=== PATIENT | female | born 1955 | race Caucasian/White ===

== ENCOUNTER → 2019-01-15 | Outpatient (REF) | LOC: ZLAB.WCH 20:12 | DX: Z01.89 Encounter for other specified special examinations (principal) ==

== ENCOUNTER 2019-10-01 10:42 | Day surgery (SDC) | payer OTHER, MEDICAID ==
[~2019-10-01] VITALS: Ht 167.6 cm; Wt 125.5 kg
[2019-10-01 11:43] VITALS: BP 151/103; PULSE 79; TEMP 97.4
[2019-10-01] MEDS ORDERED: ULTRAM 50MG TAB50 MG PO (12:01)
[2019-10-01] MEDS ORDERED: PRIL40 PO (12:02)
[2019-10-01] MEDS ORDERED: LOTENSIN40 MG PO (12:03)
[2019-10-01] MEDS ORDERED: LINZESS290CAP PO (12:04)
[2019-10-01] MEDS ORDERED: NORVASC 10MG10 MG PO (12:04)
[2019-10-01] MEDS ORDERED: SYNTHROID0.137 MG PO (12:06)
[2019-10-01] MEDS ORDERED: LIORESAL20 MG PO (12:07)
[2019-10-01] MEDS ORDERED: LIPITOR20 MG PO (12:07)
[2019-10-01] MEDS ORDERED: PROTONIX 40MG T40 MG PO (12:08)
[2019-10-01] MEDS ORDERED: ESTRACE 1MG1 MG/TAB PO (12:09)
[2019-10-01] MEDS ORDERED: PRISTIQ100 MG PO (12:09)
[2019-10-01] MEDS ORDERED: OMEGA-31 SGL PO (12:10)
[2019-10-01] MEDS ORDERED: THE MEDICINE S200 M2 PO (12:11)
[2019-10-01] MEDS ORDERED: COREG 25MG25 MG/TAB PO (12:11)
[2019-10-01] MEDS ORDERED: BENADRYL50 MG PO (12:12)
[2019-10-01] MEDS ORDERED: MELATONIN5 M1 PO (12:13)
[2019-10-01] MEDS ORDERED: MULTIPLE VITAMI1 TA5 PO (12:14)
[2019-10-01] MEDS ORDERED: ASPIRIN 81M81 MG/TA2 PO (12:14)
[2019-10-01] MEDS ORDERED: LYRICA 100MG C100 M1 PO (12:15)
[2019-10-01] MEDS ORDERED: LASIX 40MG TABL40 MG PO (12:15)
[2019-10-01] MEDS ORDERED: GARLIC100 MG PO (12:16)
--- NOTE | 2019-10-01 12:16 | NUR ---
IV started by Randi MOYA from [facility] after 4 unsuccessful attempts.
[2019-10-01 14:33] VITALS: BP 152/84; PULSE 84
--- NOTE | 2019-10-01 14:33 | NUR ---
Patient returns to room 7 per cart from surgery. Marx set dressing dry on the left upper buttocks. IV fluids infusing and site is free of redness. Siderail up x2 and call light in reach. Temp 97.6. Room air sats 96%. Denies pain or nausea.
[2019-10-01 14:48] VITALS: BP 140/80; PULSE 82
--- NOTE | 2019-10-01 14:48 | NUR ---
Resting and family in room. Room air sats 95%.
[2019-10-01 15:03] VITALS: BP 149/73; PULSE 80
--- NOTE | 2019-10-01 15:03 | NUR ---
Eating muffin and denies pain or nausea.
--- NOTE | 2019-10-01 15:30 | NUR ---
IV discontinued and assisted patient with dressing. Requested light dressing over incision. Folded 4x4 and tegaderm placed over incision. States that the chase set glue is rubbing on clothing.
--- NOTE | 2019-10-01 15:48 | NUR ---
Given dismissal instructions and voices understanding of these.
--- NOTE | 2019-10-01 15:55 | NUR ---
Patient dismissed to home driven by daughter and taken to the front door per wheelchair and assisted into car by RN with dismissal instructions in hand.
== END 2019-10-01 15:55 | disposition home or self-care (01) ==
LOC: SDCO 10:42
DX: N39.46 Mixed incontinence (principal); R35.1 Nocturia; R35.0 Frequency of micturition; I10 Essential (primary) hypertension; G35 Multiple sclerosis; Z79.899 Other long term (current) drug therapy; Z79.82 Long term (current) use of aspirin; Z88.8 Allergy status to other drugs, medicaments and biological substances; Z88.1 Allergy status to other antibiotic agents; Z91.040 Latex allergy status; Z80.0 Family history of malignant neoplasm of digestive organs; Z80.42 Family history of malignant neoplasm of prostate; Z80.8 Family history of malignant neoplasm of other organs or systems; K21.9 Gastro-esophageal reflux disease without esophagitis; Z86.73 Personal history of transient ischemic attack (TIA), and cerebral infarction without residual deficits
CPT/HCPCS: C1767; C1778; C1787; C1894; J0690; J2250; J2405; J2704; J3010; J7120

== ENCOUNTER 2020-01-08 20:56 | Inpatient (IN) | payer MEDICARE, MEDICAID ==
[~2020-01-08] VITALS: Ht 167.6 cm; Wt 120.6 kg
[~2020-01-08 20:56] MED LIST: AMBIEN 10MG10 MG PO; ASPIRIN 81M81 MG/TA2 PO; ASPIRIN E.C. 8181 MG PO; BENADRYL25 M2 PO; CALCIUM 600MG+D1 TAB PO; COENZYME Q10 PO; COREG 25MG25 MG/TAB PO; ESTRACE 1MG1 MG/TAB PO; GLUCOPHAGE500 MG/TAB PO; Garlic PO; HAIRSKINNAILS PO; IPRATROPIUM BROM3 M1 IH; LASIX 40MG TABL40 MG PO; LINZESS290CAP PO; LIORESAL20 MG PO; LIPITOR20 MG PO; LOTENSIN40 MG PO; LYRICA 100MG C100 M1 PO; MELATONIN5 M1 PO; MUCINEX1200 MG PO; MULTIPLE VITAMI1 TA5 PO; NORCO 325 MG-7.1 TAB PO; NORVASC 10MG10 MG PO; OMEGA-3 1000 MG1 CAP PO; PRIL40 PO; PRISTIQ100 MG PO; PROTONIX 40MG T40 MG PO; SYNTHROID0.1 MG/TAB PO; TYLENOL 325MG325 MG PO; TYLENOL 500MG500 MG PO; ULTRAM 50MG TAB50 MG PO; VTAMINC250TA PO
[2020-01-08 21:41] LABS: ARTERIAL BLD GAS O2 SATURATION 96.8 % (92-100); ARTERIAL BLD GAS TCO2 CT 22.4; ARTERIAL BLOOD GAS HCO3 21.4 meq/L (22-26); ARTERIAL BLOOD GAS PCO2 32.1 mmHg (35-45); ARTERIAL BLOOD GAS PO2 93.2 mmHg (80-100); ARTERIAL BLOOD GAS pH 7.44 (7.35-7.45)
[2020-01-08 22:10] LABS: BASO # 0.1 (0.0-0.2); BASO % 0.3 % (0.0-2.0); EOS # 0.1 (0.0-0.7); EOS % 0.5 % (0-4.0); GRAN # 11.7 (1.4-6.5); GRAN % 77.4 % (42.2-75.2); HEMATOCRIT 38.4 % (37.0-47.0); HEMOGLOBIN 12.9 g/dl (12.5-16.0); LYMPH # 2.3 (1.2-3.4); LYMPH % 15.1 % (20.0-51.0); MEAN CELL VOLUME 100 fl (80.0-100.0); MEAN CORPUSCULAR HEMOGLOBIN 34 pg (27.0-31.0); MEAN CORPUSCULAR HGB CONC 34 g/dl (33.0-37.0); MONO # 0.9 (0.1-0.6); MONO % 5.6 % (1.7-9.3); PLATELET COUNT 286 K/mm3 (130-400); RED BLOOD COUNT 3.85 M/mm3 (4.10-5.30); REDCELL DISTRIBUTION WIDTH-CV 15.1 % (11.5-14.5)
[2020-01-08 22:27] LABS: ALBUMIN 4.2 gm/dL (3.5-5.0); C-REACTIVE PROTEIN 3.2 mg/dL (0.0-0.9); CALCIUM 9.2 mg/dL (8.4-10.2); CREATININE, serum 1.08 (0.52-1.25); POTASSIUM 3.5 mmol/L (3.4-5.0); TOTAL PROTEIN 7.4 gm/dL (6.4-8.2)
[2020-01-08 22:32] LABS: TROPONIN-I 0.024 ng/mL (0.000-0.035)
[2020-01-08 23:49] LABS: COLLECTION METHOD CLEAN CATCH
--- NOTE | 2020-01-09 00:05 | NUR ---
Received report from GRIFFIN Moreno.
[2020-01-09] MEDS ORDERED: LINZESS290CAP PO (00:10)
[2020-01-09] MEDS ORDERED: PRISTIQ100 MG PO (00:12)
[2020-01-09] MEDS ORDERED: XANAX 0.5MG0.5 MG PO (00:15)
[2020-01-09] MEDS ORDERED: MAALOX ADVANCED1 CTB PO ×2 (00:15→03:17)
[2020-01-09] MEDS ORDERED: NAPROSYN500 MG PO (00:16)
--- NOTE | 2020-01-09 00:25 | NUR ---
Patient arrives to [facility] room 15 via ED stretcher accompanied by ED nurse and daughter Zain. Patient opens eyes spontaneously upon transfer to IMCU bed. Patient alert to self, city, current president, and upcoming holiday, however, is not oriented to day or present situation and unable to rate pain on a scale of 1-10. She quickly becomes drowsy/lethargic once settled in the bed. ED nurse Josh states this is the most alert and oriented patient has presented all night. Patient has small scratches/scabs scattered throughout BUE and her lower back is bruised. Pitting edema noted in BLE, 1+ noted in BUE. Feet are dry and scaling although skin is intact. Groin area is reddened. No other skin issues noted. Will continue to monitor.
[2020-01-09 00:59] LABS: TRICYCLIC ANTIDEPRESS URINE NEGATIVE
[2020-01-09 01:02] LABS: MUCOUS Present /lpf; PH 5 (5-8); SQUAMOUS EPITHELIAL 0-2 /hpf; URINE APPEARANCE Hazy; URINE BACTERIA None Seen /hpf; URINE BILIRUBIN Negative (NEGATIVE); URINE BLOOD Negative (NEGATIVE); URINE COLOR Yellow; URINE GLUCOSE Negative (NEGATIVE); URINE KETONE Negative (NEGATIVE); URINE LEUKOCYTE ESTERASE Negative (NEGATIVE); URINE NITRATE Negative (NEGATIVE); URINE PROTEIN(semi-quant) Negative (NEGATIVE); URINE RBC 0-2 /hpf; URINE UROBILINOGEN Negative (NEGATIVE)
[2020-01-09 02:16] VITALS: BP 126/76; PULSE 94; TEMP 98
[2020-01-09] MEDS ORDERED: MULTI VITAMINS1 TAB PO (03:28)
[2020-01-09 04:00] VITALS: BP 110/70; PULSE 84; TEMP 98.3
[2020-01-09 05:23] LABS: BASO % 0.4 % (0.0-2.0); EOS # 0.1 (0.0-0.7); EOS % 0.5 % (0-4.0); GRAN # 7.9 (1.4-6.5); GRAN % 74.1 % (42.2-75.2); HEMOGLOBIN 11.7 g/dl (12.5-16.0); LYMPH % 18.4 % (20.0-51.0); MEAN CELL VOLUME 102 fl (80.0-100.0); MEAN CORPUSCULAR HEMOGLOBIN 34 pg (27.0-31.0); MEAN CORPUSCULAR HGB CONC 33 g/dl (33.0-37.0); MEAN PLATELET VOLUME 9.9 fl (7.4-10.4); MONO # 0.6 (0.1-0.6); MONO % 5.5 % (1.7-9.3); PLATELET COUNT 192 K/mm3 (130-400); RED BLOOD COUNT 3.45 M/mm3 (4.10-5.30); REDCELL DISTRIBUTION WIDTH-CV 15.3 % (11.5-14.5)
[2020-01-09 05:24] LABS: HEMATOCRIT 35.2 % (37.0-47.0)
[2020-01-09 05:29] LABS: CALCIUM 8.7 mg/dL (8.4-10.2); CREATININE, serum 0.86 (0.52-1.25); POTASSIUM 3.2 mmol/L (3.4-5.0)
--- NOTE | 2020-01-09 07:15 | NUR ---
Report given to GRIFFIN Stone.
[2020-01-09 08:00] VITALS: BP 143/85; PULSE 99; TEMP 98.1
--- NOTE | 2020-01-09 11:59 | NUR ---
DR OWENS MAKING ROUNDS AT THIS TIME.
[2020-01-09 12:00] VITALS: BP 119/80; PULSE 101; TEMP 98.1
[2020-01-09 16:00] VITALS: BP 127/73; PULSE 99; TEMP 98
--- NOTE | 2020-01-09 16:01 | NUR ---
POTATO PEELER student met with the patient to complete initial intake. The patient was at [facility] for fpc. The patient receives assistance with ADLs and uses a wheelchair when needed. The patient has a CPAP. The patient's PCP is Dr. Shi and reports that [facility] handles all her medication needs. The patient does not have advanced directives in the EMR. The patient reports she will discuss discharging back to [facility] with her daughter. PT/OT ordered for the patient. director of food and beverage services will continue to follow.
--- NOTE | 2020-01-09 19:00 | NUR ---
Received report from GRIFFIN Stone.
[2020-01-09 20:00] VITALS: BP 112/64; PULSE 108; TEMP 98
--- NOTE | 2020-01-09 22:00 | NUR ---
Patient's 2100 HepXa resulted as 1.95. Heparin drip placed on hold at this time according to protocol. Next HepXa scheduled for 0000.
[2020-01-10] VITALS (7 sets, daily range): BP systolic 122–146; BP diastolic 80–98; PULSE 96–111; TEMP 97.8–98.6
--- NOTE | 2020-01-10 00:20 | NUR ---
Patient began expressing increased anxiety related to diagnosis around 2330. Patient's concerns and fears primarily related to family history of clotting disorders and heart problems. Cares performed to make patient more calm and comfortable. Patient continued to express anxiety, stating she felt as though she were having a panic attack. HR and BP elevated from baseline. Dr. Price notified. Received orders for Xanax 0.5 mg PO every 8 hours PRN. Medication administered. Will continue to monitor.
--- NOTE | 2020-01-10 07:20 | NUR ---
Report given to GRIFFIN Shea.
[2020-01-10 08:00] LABS: BASO % 0.3 % (0.0-2.0); EOS # 0.1 (0.0-0.7); EOS % 0.9 % (0-4.0); GRAN # 7.1 (1.4-6.5); GRAN % 70.3 % (42.2-75.2); HEMOGLOBIN 10.8 g/dl (12.5-16.0); LYMPH # 2.1 (1.2-3.4); LYMPH % 20.7 % (20.0-51.0); MEAN CELL VOLUME 103 fl (80.0-100.0); MEAN CORPUSCULAR HEMOGLOBIN 34 pg (27.0-31.0); MEAN CORPUSCULAR HGB CONC 33 g/dl (33.0-37.0); MEAN PLATELET VOLUME 9.6 fl (7.4-10.4); MONO # 0.7 (0.1-0.6); MONO % 6.7 % (1.7-9.3); PLATELET COUNT 200 K/mm3 (130-400); REDCELL DISTRIBUTION WIDTH-CV 15.4 % (11.5-14.5)
[2020-01-10 08:01] LABS: HEMATOCRIT 32.9 % (37.0-47.0)
[2020-01-10 08:12] LABS: ALBUMIN 3.2 gm/dL (3.5-5.0); BILIRUBIN,TOTAL 0.6 mg/dL (0.0-1.0); CALCIUM 8.7 mg/dL (8.4-10.2); CREATININE, serum 0.53 (0.52-1.25); MAGNESIUM 1.8 mg/dL (1.6-2.3); POTASSIUM 3.5 mmol/L (3.4-5.0); TOTAL PROTEIN 5.9 gm/dL (6.4-8.2)
[2020-01-10 10:35] LABS: INR 0.9 (0.8-3.0); PROTHROMBIN TIME 10.4 SECONDS (9.7-12.8)
--- NOTE | 2020-01-10 12:20 | NUR ---
XERALTO GIVEN. HEPARIN DRIP STOPPED.
--- NOTE | 2020-01-10 12:45 | NUR ---
REPORT GIVEN TO RN ON MEDICAL FLOOR. ALL QUESTIONS ANSWERED. PT EATING LUNCH THEN WILL TRANSFER UP TO ROOM 316
--- NOTE | 2020-01-10 14:02 | NUR ---
SABIHA trevino met with the patient and she will be returning to [facility] at discharge. SABIHA trevino faxed updates to Gustavo at [facility]. The patient is to be tranferred to medical floor this day.
--- NOTE | 2020-01-10 14:50 | NUR ---
RECIEVED THIS PATIENT FROM ICU NURSE. PATIENT IS RESTING IN BED. SHE ATE HER SANDWICH BECAUSE SHE DID NOT LIKE THE LUNCH THAT WAS SERVED. LUNG SOUNDS WERE CLEAR IN UPPER LOBES. RIGHT LOWER LOBE WAS DIMINISHED AT THIS TIME. LEFT LOWER LOBE IS CLEAR. PATIENT WAS RATING AN 8/10 PAIN SO TYLENOL WAS GIVEN TO HER. PITTING EDEMA TO HER LOWER LEGS BILARTERLLY WITH SOME PAIN PRESENT. PATIENT IS EMOTIONAL ABOUT HER STATUS OF HAVING A PE, COMFORTED HER. ORIENTATED HER TO NEW ROOM HERE ON MEDICAL AND THE CALL LIGHT.
--- NOTE | 2020-01-10 16:16 | NUR ---
UPON ENTERING THE ROOM THE PATIENT WAS COMPLAINING OF UPPER ABDOMENAL PAIN RIGHT UNDERNEATH HER RIB CAGE. SHE STATED THAT SHE FELT IF SHE WAS BEING SQUEEZED AND WAS SHORT OF BREATH. SET OF VITALS WERE TAKEN, PRN XANAX WAS GIVEN TO PATIENT AT THIS TIME. SHE THEN STATED IF SHE FELT IF SHE WAS GOING TO THROW UP. BASIN WAS RECEIVED FOR PATIENT. MARY CARDONA, WAS NOTIFIED OF THIS CHANGE IN CONDITION FOR PATIENT.
--- NOTE | 2020-01-10 17:45 | NUR ---
WENT BACK TO ASSESS PATIENT AND HER CONTITION. SHE IS MUCH CALMER AND NOT REPORTING PAIN RIGHT NOW. SHE IS SITTING IN HER BACK WITH HER HOB ELEVATED. SHE IS BREATHING A LOT CALMER AT THIS TIME. NO INSULIN REQUIRED THIS EVENING DUE TO LOW SLIDING SCALE AND HER ACCU-CHECK. WILL REPORT OFF TO IT HELP DESK ANALYST UPON THERE ARRIVAL.
[2020-01-11] VITALS (7 sets, daily range): BP systolic 112–133; BP diastolic 69–84; PULSE 91–100; TEMP 97.4–98.8
--- NOTE | 2020-01-11 04:38 | NUR ---
Pt has had an uneventful night. After taking evening medications, the pt requested a pain pill to keep herself from waking up in pain. Pt fell asleep, so this RN decided to wait to wake her up and then give it to her. Pt slept well, RT arrived to place Cpap on pt. Cpap was put on, however, GRIFFIN Clements (acting as tech tonight) found pt without Cpap or NC on. Pt's O2 sats were 83%, This RN turned pt's O2 up to 4L via NC to compensate for the low sats. Pt has remained on 4L at 95%, PT has slept the remainder of the night. Call light within reach, Bed Alarm on. No further concerns at this time.
--- NOTE | 2020-01-11 08:27 | NUR ---
Pt awake and alert upon entry, some C/O pain in lower extremities, +4 pitting bilat lower, shift assessments complete, left Pt call light in reach, bed in lowest position.
[2020-01-11 09:10] LABS: CALCIUM 8.6 mg/dL (8.4-10.2); CREATININE, serum 0.58 (0.52-1.25); MAGNESIUM 1.9 mg/dL (1.6-2.3); POTASSIUM 4.3 mmol/L (3.4-5.0)
[2020-01-11 09:14] LABS: HEMOGLOBIN 10.5 g/dl (12.5-16.0); MEAN CELL VOLUME 107 fl (80.0-100.0); MEAN CORPUSCULAR HEMOGLOBIN 34 pg (27.0-31.0); MEAN CORPUSCULAR HGB CONC 32 g/dl (33.0-37.0); MEAN PLATELET VOLUME 9.5 fl (7.4-10.4); PLATELET COUNT 209 K/mm3 (130-400); RED BLOOD COUNT 3.11 M/mm3 (4.10-5.30); REDCELL DISTRIBUTION WIDTH-CV 15.7 % (11.5-14.5)
[2020-01-11 09:17] LABS: HEMATOCRIT 33.3 % (37.0-47.0)
[2020-01-11 10:49] LABS: BAND 1 % (0-10); EOSINOPHIL 1 % (0-4); LYMPHOCYTE 13 % (20.0-51.0); METAMYELOCYTE 1 % (0-0); MYELOCYTE 2 % (0-0); NEUTROPHILS 74 % (42.0-75.2); PLATELET ESTIMATE NORMAL (NORMAL)
--- NOTE | 2020-01-11 11:53 | NUR ---
RACHELE received call from patients provider indicating that she was freee to return to [facility]. RACHELE faxed over updated to [facility] and called Gustavo who reported that the patient had a medicare [employer] plan and that they would not be able to take her until they received approval. Gustavo did report that as soon as he received a call from patients insurance agency he would call to inform staff. With Monday being a holiday Gustavo reported that he is not sure if he would receive a call from them by then. RACHELE contacted patients nurse to inform him of current status. RACHELE will continue to monitor.
--- NOTE | 2020-01-11 12:59 | NUR ---
Mullen catheter discontinued, 8ml removed from balloon, Pt tolerated procedure well.
--- NOTE | 2020-01-11 18:27 | NUR ---
Pt rested in the bed today, some C/O pain in her chest area during the day, medications given for relief, lantigua D/Andrew today, no other issue noted, VS have remained stable.
--- NOTE | 2020-01-11 19:15 | NUR ---
Pt's daughter, Daphne, is waiting at the pt's door to talk to the RN. It appears that Daphne is very angry with the day shift, and how her mother was treated. Pt called at 1450, and told whoever answered the call light that she had, had a BM and needed to be changed. At 1515, the pt's daughter came out the room to ask if someone could come change her mother, again no one came. At 1600 the pt's daughter decided to change her mother's brief, at 1615 the aides came to the room to change the pt's brief, however the daughter had just finished. The pt's daughter was VERY upset that the mother had remained in a brief of diarrhea for well over 1 hour. The pt's daughter also expressed frustration with the day RN who told her that Dr. Parkinson would return to speak to her, however, it was never relayed to Dr. Parkinson. The pt's daughter waited from 1468-1000 for the doctor to round back to talk to her. She stated she saw him on the medical floor, and was very frustrated that he was not stopping to talk with her. Pt and family has stated they refuse to have the same Day RN again. Notified Auto Washer of the conflict, and the nighttime Charge will also take care of the assignment of the day RN to this pt. Dr. Parkinson was notified of the family's desire to speak with him, and stated he will be in on 01/12/20 at 0900. Family was told, and stated they would be here at 0900 waiting for him.
[2020-01-12 04:49] VITALS: BP 122/81; PULSE 88; TEMP 97.6
[2020-01-12 08:08] VITALS: BP 133/80; PULSE 89; TEMP 98.2
--- NOTE | 2020-01-12 08:25 | NUR ---
Assessment charted. Patient A&Ox4. Denies pain, discomfort, SOB. VSS 2L NC O2. IV CDI gauze and coban covering. Patient positioned for comfort. No further needs expressed from patient. Call light within reach
[2020-01-12 09:32] LABS: MEAN CELL VOLUME 107 fl (80.0-100.0); MEAN CORPUSCULAR HEMOGLOBIN 34 pg (27.0-31.0); MEAN CORPUSCULAR HGB CONC 32 g/dl (33.0-37.0); MEAN PLATELET VOLUME 9.3 fl (7.4-10.4); PLATELET COUNT 221 K/mm3 (130-400); RED BLOOD COUNT 3.22 M/mm3 (4.10-5.30); REDCELL DISTRIBUTION WIDTH-CV 15.5 % (11.5-14.5)
[2020-01-12 09:41] LABS: HEMATOCRIT 34.3 % (37.0-47.0)
[2020-01-12 09:50] LABS: CALCIUM 8.9 mg/dL (8.4-10.2); CREATININE, serum 0.56 (0.52-1.25); POTASSIUM 4.7 mmol/L (3.4-5.0)
[2020-01-12 11:16] LABS: BAND 3 % (0-10); LYMPHOCYTE 24 % (20.0-51.0); METAMYELOCYTE 4 % (0-0); NEUTROPHILS 64 % (42.0-75.2); PLATELET ESTIMATE NORMAL (NORMAL)
--- NOTE | 2020-01-12 11:18 | NUR ---
Social work follow-up. Patient reports that she does not want to go back to [facility]. Patient reports that she has been given the worng medications and it has caused her to end up here. Client reports care concerns on behalf of [facility]. SW obtianed [facility] forms and educated patient on long term choices from medicare.gov. Patient choice 1. [facility] 2. [facility]. RACHELE faxed referrals to both. Awaiting screen results.
[2020-01-12 12:18] VITALS: BP 116/94; PULSE 113; TEMP 98.3
[2020-01-12 15:59] VITALS: BP 127/82; PULSE 103; TEMP 98.3
--- NOTE | 2020-01-12 17:50 | NUR ---
Patient had an uneventful day. Spent most of the shift resting in bed. No change in AMS, A&Ox3. VSS. IV CDI. Complaints of pain in chest and back, pain medication administered when requested. Galilea care provided and external catheter changed. No further needs expressed from patient. Call light within reach
--- NOTE | 2020-01-12 19:40 | NUR ---
vd report form GRIFFIN Paredes. Pt is laying in bed, has no complaints today. Seems much happier than the day before. Pt is eating dinner. No wants or need expressed by Pt at this time. Call light and bed alarm on, no further concerns at this time.
[2020-01-12 20:08] VITALS: BP 118/78; PULSE 91; TEMP 97.3
[2020-01-12 23:21] VITALS: BP 132/84; PULSE 90; TEMP 98.5
[2020-01-13 04:10] VITALS: BP 128/86; PULSE 79; TEMP 99.5
[2020-01-13 08:19] VITALS: BP 136/76; PULSE 85; TEMP 99.2
--- NOTE | 2020-01-13 10:00 | NUR ---
RECIEVED REPORT FROM OIL INSPECTOR. PATIENT IS VEY PLEASANT THIS AM. SHE ATE HER BREAKFAST AND THEN WORKED WITH OT. TOOK HER MORNING PILLS WITHOUT DIFFICULTY. PATIENT DENIES ANY SHORTNESS OF BREATH, NAUSEA, VOMITING, OR DIZZINESS. PATIENT IS NOW RESTING IN BED.
--- NOTE | 2020-01-13 10:56 | NUR ---
PATIENT IS ASLEEP IN HER BED. FRESH WATER WAS GIVEN TO THE PATIENT.
[2020-01-13 11:28] VITALS: BP 123/86; PULSE 95; TEMP 98.5
--- NOTE | 2020-01-13 13:43 | NUR ---
Lisandra, at [facility], reports that they are unable to accept the patient. Juan Luis, at [facility], reports that they are clinically able to accept the patient, but that they are just waiting on the patient's insurance. SW to update the patient and her daughter. SW to continue to follow.
--- NOTE | 2020-01-13 15:31 | NUR ---
PATIENT REQUESTED TO HAVE NORCO PAIN MEDICATION TO HELP WITH HER LOWER BACK PAIN. WHEN GOING BACK TO CHECK ON THE PATIENT, SHE IS WORKING WITH PHYSICAL THERAPY AND WAS SITTING UP AT THE EDGE OF THE BED AT THAT TIME. DENYING ANY OTHER NEEDS AT THIS TIME.
--- NOTE | 2020-01-13 16:50 | NUR ---
PATIENT IS LAYING IN BED RESTING AT THIS TIME. NO OTHER NEEDS ARE REQUIRED AT THIS TIME
[2020-01-13 16:51] VITALS: BP 112/74; PULSE 84; TEMP 98.2
--- NOTE | 2020-01-13 17:28 | NUR ---
PATIENT'S BLOOD SUGAR WAS 101 AND DOES NOT REQUIRE ANY INSULIN AT THIS TIME. PATIENT SAT UP ON THE EDGE OF THE BED AND STOOD WITH PT USING THE SIT TO STAND LIFT. PATIENT HAS AN EXTERNAL FEMALE CATETHER IN PLACE. R. GROIN AREA IS HEALING AND LOOKING LOTS BETTER. BEEN USING THE BARRIER SPRAY TO THE AREA. PATIENT HAS BEEN DRINKING HER FLUIDS GREAT TODAY AND BEEN EATING WELL. PATIENT HAS NO COMPLAINTS AT THIS TIME AND IS VISITING ON HER CELL PHONE. WILL REPORT OFF TO MANAGER LABORATORY UPON THEIR ARRIVAL.
[2020-01-13 19:46] VITALS: BP 109/77; PULSE 91; TEMP 98.5
--- NOTE | 2020-01-13 20:50 | NUR ---
Shift assessment complete. Pt resting in bed, awake, a&o, cooperative c cares. Pt continued c/o chronic back pain rated 7/10; provided c PRN Nellis per pt request. Pt denies any other c/o. INT patent. Tele in place. Pt denies further needs. Call light in reach, bed alarm on. Will continue to monitor.
[2020-01-13 23:30] VITALS: BP 110/67; PULSE 90; TEMP 97.6
[2020-01-14 03:01] VITALS: BP 134/80; PULSE 90; TEMP 97.2
[2020-01-14 07:30] VITALS: BP 132/87; PULSE 72; TEMP 99.5
--- NOTE | 2020-01-14 07:30 | NUR ---
Assessment as charted. Telemetry on. O2 on @ 2L/nc. Bilateral bases diminished. O2 sat 95%. INT to Right wrist intact with sanguious drainage. Primary nurse notified. Pt reports pain 8/10 to lower back, PO pain med initiated. Bilateral lower extremity edema, 2+ to Right lower extremity.
--- NOTE | 2020-01-14 09:00 | NUR ---
Reassess pain 05/06, pt reports "feeling better".
--- NOTE | 2020-01-14 10:56 | NUR ---
RACHELE contacted the patient's daugher, Zain, to follow up on preference between [facility] and [facility]. The patient's daughter reports that her and the patient has chosen to go back to [place] [facility]. RACHELE notified Gustavo at [facility] and Alessandra at [facility]. RACHELE to update Juan Luis at [facility]. RACHELE to continue to follow.
[2020-01-14 11:15] VITALS: BP 130/85; PULSE 75; TEMP 98.7
[2020-01-14] MEDS ORDERED: ELIQUIS 5MG PO (11:16)
[2020-01-14] MEDS ORDERED: NORCO 325 MG-7.1 TAB PO (11:29)
[2020-01-14] MEDS ORDERED: LASIX 40MG TABL40 MG PO (11:30)
--- NOTE | 2020-01-14 13:34 | NUR ---
SW attended clinical rounds. The patient is to discharge today, 01/14, to [place] [facility] for a skilled stay. SW followed up with the patient. The patient is agreeable to going back to [facility]. RACHELE presented and explained the IM form to the patient. The patient verbalized understanding, signed, and she was provided a copy. Transportation was scheduled for 1500, via [facility]. RACHELE informed the patient, her RN, and daughter (Zain), via phone. They were all in agreeance to the time. No additional needs at this time.
--- NOTE | 2020-01-14 16:00 | NUR ---
PT HAD UNEVENETFUL DAY. PT VOICED REAIDNESS TO DC THIS AM. HAS BEEN AWAKE AND ALERT ALL DAY WITHOUT ISSUES. IV AND TELE DC'D WITHOUT ISSUES. PT ASSISTED INTO HER DAY CLOTHES. [facility] STAFF HERE TO TAKE PT BACK TO FACILITY. STAFF ASSISTED PT INTO HER W/C AND SHE WAS TAKEN OUT BY [facility]. NO QUESTIONS VOICED.
== END 2020-01-14 16:30 | DRG 947 ==
LOC: COL.ER 20:56 → IMCU 22:40 → MEDICAL 22:40
PROVIDERS: Emergency Medicine; Nurse Practitioner Family; Student in an Organized Health Care Education/Training Program; ADMIT Hospitalist
DX: R41.82 Altered mental status, unspecified (principal); I26.99 Other pulmonary embolism without acute cor pulmonale; I82.413 Acute embolism and thrombosis of femoral vein, bilateral; M79.7 Fibromyalgia; G47.33 Obstructive sleep apnea (adult) (pediatric); F32.9 Major depressive disorder, single episode, unspecified; E03.9 Hypothyroidism, unspecified; E66.01 Morbid (severe) obesity due to excess calories; K44.9 Diaphragmatic hernia without obstruction or gangrene; E87.6 Hypokalemia; E83.42 Hypomagnesemia; T50.995A Adverse effect of other drugs, medicaments and biological substances, initial encounter; K58.9 Irritable bowel syndrome, unspecified; E78.5 Hyperlipidemia, unspecified; Z90.710 Acquired absence of both cervix and uterus; Z90.49 Acquired absence of other specified parts of digestive tract; Z79.82 Long term (current) use of aspirin; Z90.89 Acquired absence of other organs; Z79.84 Long term (current) use of oral hypoglycemic drugs; Z91.19 Patient's noncompliance with other medical treatment and regimen
CPT/HCPCS: 99222-AI; 99231-AI; 99232-AI; 99233-AI; 99239; C9113; J1644; J1650; J1815; J1940; J2060; J2270; J2310; J2405; J3475; J7030; J7040; Q9967

== ENCOUNTER → 2020-03-10 | Outpatient (CLI) | payer MEDICARE ==
[~2020-03-10] MED LIST changes: +ELIQUIS 5MG PO; +MAALOX ADVANCED1 CTB PO; +MULTI VITAMINS1 TAB PO; +NAPROSYN500 MG PO; +XANAX 0.5MG0.5 MG PO
== END ==
LOC: ZLAB.STJ 10:23
DX: E03.9 Hypothyroidism, unspecified (principal)

== ENCOUNTER → 2020-03-17 | Outpatient (CLI) | payer MEDICARE ==
[2020-03-17 12:19] LABS: BASO # 0.1 (0.0-0.2); BASO % 0.5 % (0.0-2.0); EOS # 0.1 (0.0-0.7); EOS % 1.3 % (0-4.0); GRAN % 72.4 % (42.2-75.2); HEMATOCRIT 38.7 % (37.0-47.0); HEMOGLOBIN 11.9 g/dl (12.5-16.0); LYMPH # 2.2 (1.2-3.4); LYMPH % 20.3 % (20.0-51.0); MEAN CELL VOLUME 100 fl (80.0-100.0); MEAN CORPUSCULAR HEMOGLOBIN 31 pg (27.0-31.0); MEAN CORPUSCULAR HGB CONC 31 g/dl (33.0-37.0); MEAN PLATELET VOLUME 9.7 fl (7.4-10.4); MONO # 0.6 (0.1-0.6); PLATELET COUNT 245 K/mm3 (130-400); RED BLOOD COUNT 3.86 M/mm3 (4.10-5.30); REDCELL DISTRIBUTION WIDTH-CV 13.9 % (11.5-14.5)
[2020-03-17 12:26] LABS: ALBUMIN 3.1 gm/dL (3.5-5.0); BILIRUBIN,TOTAL 0.5 mg/dL (0.0-1.0); CALCIUM 8.9 mg/dL (8.4-10.2); CREATININE, serum 0.71 (0.52-1.25); POTASSIUM 3.5 mmol/L (3.4-5.0); TOTAL PROTEIN 5.8 gm/dL (6.4-8.2)
[2020-03-17 12:42] LABS: COLLECTION METHOD CLEAN CATCH
[2020-03-17 13:05] LABS: MUCOUS Present /lpf; PH 5 (5-8); URINE APPEARANCE Hazy; URINE BACTERIA Many /hpf; URINE BILIRUBIN Negative (NEGATIVE); URINE BLOOD Negative (NEGATIVE); URINE COLOR Yellow; URINE GLUCOSE Negative (NEGATIVE); URINE KETONE Negative (NEGATIVE); URINE LEUKOCYTE ESTERASE 1+ (NEGATIVE); URINE NITRATE Negative (NEGATIVE); URINE PROTEIN(semi-quant) Negative (NEGATIVE); URINE RBC 0-2 /hpf; URINE UROBILINOGEN Negative (NEGATIVE)
== END ==
LOC: ZLAB.STJ 12:08
PROVIDERS: Internal Medicine
DX: I25.10 Atherosclerotic heart disease of native coronary artery without angina pectoris (principal); N39.0 Urinary tract infection, site not specified

== ENCOUNTER 2020-04-02 11:32 | Inpatient (IN) | payer MEDICARE, MEDICAID ==
[2020-04-02] VITALS (424 sets, daily range): BP systolic 94–127; BP diastolic 60–70; PULSE 67–80; TEMP 97.7–98.4; O2SAT 90–100
[~2020-04-02] VITALS: Ht 167.6 cm; Wt 125.3 kg
[2020-04-02 12:23] LABS: INR 1.3 (0.8-3.0); PROTHROMBIN TIME 14.7 SECONDS (9.7-12.8)
[2020-04-02 12:30] LABS: ALANINE AMINOTRANSFERASE 82 U/L (4-34); ALBUMIN 3.5 gm/dL (3.5-5.0); ALKALINE PHOSPHATASE 140 U/L (50-136); ANION GAP 4 mmol/L (7-16); AST,SGOT 137 U/L (15-37); BILIRUBIN,TOTAL 0.4 mg/dL (0.0-1.0); BLOOD UREA NITROGEN 20 mg/dL (7-17); C-REACTIVE PROTEIN 2.3 mg/dL (0.0-0.9); CARBON DIOXIDE 32 mmol/L (22-30); CHLORIDE 101 mmol/L (98-107); CREATININE, serum 0.88 (0.52-1.25); GLUCOSE 150 mg/dL (74-106); POTASSIUM 4.4 mmol/L (3.4-5.0); SODIUM 138 mmol/L (137-145); TOTAL PROTEIN 6.6 gm/dL (6.4-8.2)
[2020-04-02 12:38] LABS: BASO # 0.1 (0.0-0.2); BASO % 0.4 % (0.0-2.0); EOS # 0.2 (0.0-0.7); EOS % 1.1 % (0-4.0); GRAN # 14.7 (1.4-6.5); GRAN % 83.1 % (42.2-75.2); HEMATOCRIT 40.4 % (37.0-47.0); HEMOGLOBIN 12.3 g/dl (12.5-16.0); LYMPH % 11.2 % (20.0-51.0); MEAN CELL VOLUME 101 fl (80.0-100.0); MEAN CORPUSCULAR HEMOGLOBIN 31 pg (27.0-31.0); MEAN CORPUSCULAR HGB CONC 30 g/dl (33.0-37.0); MEAN PLATELET VOLUME 9.4 fl (7.4-10.4); MONO # 0.7 (0.1-0.6); MONO % 3.7 % (1.7-9.3); PLATELET COUNT 270 K/mm3 (130-400); RED BLOOD COUNT 4.02 M/mm3 (4.10-5.30); REDCELL DISTRIBUTION WIDTH-CV 14.5 % (11.5-14.5)
[2020-04-02 12:39] LABS: TROPONIN-I < 0.012 ng/mL (0.000-0.035)
--- NOTE | 2020-04-02 15:04 | NUR ---
Heather,Pharmacist called to ask several questions about continuous Narcan gtt pt will be coming over on from ED. Pharmacist to call MD Rajiv for recommendations. Report phoned from GRIFFIN Tamayo in ED at 1430
[2020-04-02] MEDS ORDERED: NORVASC 10MG10 MG PO (15:29)
[2020-04-02] MEDS ORDERED: ELIQUIS 5MG PO (15:31)
[2020-04-02 18:04] LABS: ARTERIAL BLD GAS O2 SATURATION 94.7 % (92-100); ARTERIAL BLD GAS TCO2 CT 29.9; ARTERIAL BLOOD GAS BASE EXCESS 1.3 (-2-2); ARTERIAL BLOOD GAS HCO3 28.2 meq/L (22-26); ARTERIAL BLOOD GAS PCO2 55.2 mmHg (35-45); ARTERIAL BLOOD GAS PO2 77.9 mmHg (80-100); ARTERIAL BLOOD GAS pH 7.33 (7.35-7.45)
[2020-04-02 18:16] LABS: COLLECTION METHOD CLEAN CATCH
[2020-04-02 18:24] LABS: MUCOUS Present /lpf; PH 5 (5-8); SQUAMOUS EPITHELIAL 0-2 /hpf; URINE APPEARANCE Clear; URINE BACTERIA Rare /hpf; URINE BILIRUBIN Negative (NEGATIVE); URINE BLOOD Negative (NEGATIVE); URINE COLOR Yellow; URINE GLUCOSE Negative (NEGATIVE); URINE KETONE Negative (NEGATIVE); URINE LEUKOCYTE ESTERASE Negative (NEGATIVE); URINE NITRATE Negative (NEGATIVE); URINE PROTEIN(semi-quant) Negative (NEGATIVE); URINE RBC 0-2 /hpf; URINE UROBILINOGEN Negative (NEGATIVE)
--- NOTE | 2020-04-02 19:15 | NUR ---
Bedside report received from GRIFFIN Rucker
--- NOTE | 2020-04-02 20:00 | NUR ---
Patient resting in bed quietly. Opens eyes spontaneously. She is alert and oriented x4. Patient only has complaints of pain in her right foot when touched or moved. She is on BiPAP. Assessment complete. HR and rhythm are regular with normal S1 and S2 heard. Lungs are diminished in all kingsley, especially the bases. Bowel sounds active x4. Patient has some generalised edema. Patient also has generalized bruising and scabs, especially on BUE and BLE. Patient repositioned for comfort. No further needs at this time. Will continue to monitor. Call light within reach.
[2020-04-03] VITALS (944 sets, daily range): BP systolic 83–160; BP diastolic 43–95; PULSE 64–104; TEMP 96.6–98.7; O2SAT 88–100
--- NOTE | 2020-04-03 07:30 | NUR ---
Report received from GRIFFIN Lr. Patient is resting in bed. Call light and bed side table are within reach.
--- NOTE | 2020-04-03 07:40 | NUR ---
Bedside report given to GRIFFIN Walker and GRIFFIN Delacruz
[2020-04-03 08:31] LABS: BASO # 0.1 (0.0-0.2); BASO % 0.4 % (0.0-2.0); EOS # 0.1 (0.0-0.7); EOS % 0.9 % (0-4.0); GRAN # 10.3 (1.4-6.5); GRAN % 80.9 % (42.2-75.2); LYMPH # 1.9 (1.2-3.4); MEAN CELL VOLUME 101 fl (80.0-100.0); MEAN CORPUSCULAR HGB CONC 30 g/dl (33.0-37.0); MEAN PLATELET VOLUME 9.6 fl (7.4-10.4); MONO # 0.3 (0.1-0.6); MONO % 2.6 % (1.7-9.3); PLATELET COUNT 231 K/mm3 (130-400); RED BLOOD COUNT 3.09 M/mm3 (4.10-5.30); REDCELL DISTRIBUTION WIDTH-CV 14.6 % (11.5-14.5)
[2020-04-03 08:36] LABS: ALBUMIN 2.5 gm/dL (3.5-5.0); BILIRUBIN,TOTAL 0.2 mg/dL (0.0-1.0); CALCIUM 7.6 mg/dL (8.4-10.2); CREATININE, serum 0.55 (0.52-1.25); POTASSIUM 3.4 mmol/L (3.4-5.0); TOTAL PROTEIN 5.1 gm/dL (6.4-8.2)
[2020-04-03 09:13] LABS: HEMATOCRIT 31.3 % (37.0-47.0); HEMOGLOBIN 9.5 g/dl (12.5-16.0); MEAN CORPUSCULAR HEMOGLOBIN 31 pg (27.0-31.0)
--- NOTE | 2020-04-03 10:44 | NUR ---
RACHELE contacted the patient's daughter, Zain Fernández (ph#[phone]), to discuss discharge plan. The patient is on COVID precautions and is awaiting results. The patient resides at [facility]. Her PCP is Dr. Amee Shi. Zain reports that they are working on getting their house handicap accessible for the patient to return back to their home, but that it is not ready yet. She states that the plan will be for the patient to return back to [facility] upon discharge. RACHELE contacted and faxed updates to Gustavo at [facility]. RACHELE also requested a copy of the patient's advanced directives from [facility]. RACHELE received the patient's DPOA-HC, via fax, from [facility]. The patient's DPOA-HC is her daughter, Zain. RACHELE to place copy in the patient's chart and will continue to follow.
--- NOTE | 2020-04-03 20:44 | NUR ---
Report given to GRIFFIN Richardson. Patient is resting in bed. Call light and bed side table are within reach.
--- NOTE | 2020-04-03 23:34 | NUR ---
PT extremely agitated stating "no one has been here for two hours! You aren't coming back when I tell you to!" Explained that this RN and battery stacker have multiple patients that require a high level of cares. PT argued stating that there was more staff on the floor and we were intentionally neglecting her. Further explained who the staff was, the role, and that all of us had other patients to attend to as well as her. PT still not calm despite explanation and apologies.
[2020-04-04] VITALS (789 sets, daily range): BP systolic 143–160; BP diastolic 77–96; PULSE 90–102; TEMP 98–99.6; O2SAT 91–100
[2020-04-04 04:26] LABS: BASO # 0.1 (0.0-0.2); BASO % 0.4 % (0.0-2.0); EOS # 0.1 (0.0-0.7); GRAN # 10.9 (1.4-6.5); GRAN % 80.7 % (42.2-75.2); HEMOGLOBIN 11.3 g/dl (12.5-16.0); LYMPH # 1.9 (1.2-3.4); LYMPH % 14.3 % (20.0-51.0); MEAN CELL VOLUME 99 fl (80.0-100.0); MEAN CORPUSCULAR HEMOGLOBIN 30 pg (27.0-31.0); MEAN CORPUSCULAR HGB CONC 31 g/dl (33.0-37.0); MEAN PLATELET VOLUME 9.2 fl (7.4-10.4); MONO # 0.4 (0.1-0.6); MONO % 3.2 % (1.7-9.3); PLATELET COUNT 240 K/mm3 (130-400); RED BLOOD COUNT 3.72 M/mm3 (4.10-5.30); REDCELL DISTRIBUTION WIDTH-CV 14.6 % (11.5-14.5)
[2020-04-04 04:28] LABS: HEMATOCRIT 36.7 % (37.0-47.0)
[2020-04-04 04:45] LABS: ALBUMIN 3.2 gm/dL (3.5-5.0); BILIRUBIN,TOTAL 0.5 mg/dL (0.0-1.0); CREATININE, serum 0.51 (0.52-1.25); POTASSIUM 3.6 mmol/L (3.4-5.0); TOTAL PROTEIN 6.3 gm/dL (6.4-8.2)
--- NOTE | 2020-04-04 12:19 | NUR ---
PT RESTING IN BED, DENIES ANY PAIN AT THIS TIME, BUT DOES STATE SHE HAS ANXIETY. MD DR. LEACH CAME TO BEDSIDE TO ASSESS PT AND IS WILL TO DOWNGRADE TO IMCU OR MEDICAL. SOME OF PT HOME MEDS HAVE BEEN RESTATRED. WILL CONTTIMUE TO ASSESS PT STATUS AND UPDATE PROVIDERS NEEDED. PT HAS HAD 1 BM ON THIS SHIFT AT THIS TIME.
--- NOTE | 2020-04-04 18:03 | NUR ---
TX OF CARE REPORT GIVEN TO GETACHEW, RN ON MEDICAL. PT GOING TO ROOM 355. VSS AT THIS TIME, PT DENIES ANY PAIN BUT PT STATES HER STOMACH DOESN'T FEEL TO GOOD. SHE HAS AGREED TO DRING THE ENSURE BUT REFUSED THE REST OF THE TRAY. POWER CURRENTLY HANGING VIA RIGHT UPPER ARM PICC. MEDICATIONS INCLUDINDG HOME PRISTIQ PLACED ON PT BED AND PT MADE AWARE.
--- NOTE | 2020-04-04 19:45 | NUR ---
Pt ADMITTED TO MEDICAL UNIT FROM ICU. PT IS A&OX4, ABLE TO MAKE WANTS/NEEDS KNOWN. THIS SPORTS ATHLETIC TRAINER ORIENTED Pt TO ROOM AND CALL LIGHT SYSTEM. Pt REQUIRES ASSISTANCE TO TRANSFER AND REPOSITION. Pt HAS A FERRIS WITH CLEAR YELLOW URINE NOTED. Pt IS ABLE TO MAKE WANTS/NEEDS KNOWN AND STATES THAT SHE WILL NEED TO TAKE HER PRN TYLENOL AND XANAX WITH HER HS MEDS. Pt IS CURRENTLY RESTING PEACEFULLY IN BED WITH CALL LIGHT AT HER SIDE AND BEDSIDE TABLE AT THE BEDSIDE WITH BEVERAGE AND PERSONAL ITEMS WITHIN REACH. WILL CONTINUE TO MONITOR.
--- NOTE | 2020-04-04 20:35 | NUR ---
Pt IS RESTING IN BED PEACEFULLY WITH CALL LIGHT AT HER SIDE. Pt IS NOTED TO HAVE HER RIGHT LOWER CALF, ANKLE, AND FOOT WRAPPED WITH DIMITRIS BANDAGE AND REPORTS THAT SHE MAY HAVE A BROKEN BONE IN HER "FOOT" AND Pt IS NOTED TO HAVE COMPLAINTS OF TENDERNESS WHEN PEDAL PULSE WAS ATTEMPTED. Pt IS NOTED TO HAVE MULTIPLE AREAS OF REDNESS AND BRUISING ON HER BUE WITH HEMATOMA NOTED TO HER RUE WITH ALL AREAS COVERED BY MEPILEX BORDER DRESSINGS. Pt IS ABLE TO MAKE WANTS AND NEEDS KNOWN WITHOUT DIFFICULTY AND IS COOPERATIVE WITH CARE, COMPLIANT WITH MEDICATION REGIMEN, AND USE OF CALL LIGHT. Pt REMAINS IN STABLE CONDITION AT THIS TIME WITH NO S/S OF DISTRESS NOTED. Pt IS IN A POSITIVE MOOD AND EXPRESSES HER HOPES THAT SHE WILL BE ABLE TO GET A GOOD NIGHT REST. EDUCATION PROVIDED ON Q4H VS ASSESSMENTS, WHEN HER NEXT MEDICATIONS WILL BE DUE, AND Pt ROUNDS DURING THE NIGHT BY NURSING STAFF BUT THAT THIS LAN/WAN ENGINEER WILL NOT WAKE HER UP UNLESS NEEDED. Pt STATED UNDERSTANDING OF EDUCATION. WILL CONTINUE TO MONITOR.
--- NOTE | 2020-04-04 23:01 | NUR ---
Pt RED PORT FLUSHES WITH DIFFICULTY AND IS NOTED TO HAVE BLOOD RETURN
--- NOTE | 2020-04-05 01:13 | NUR ---
Pt RESTING IN BED WITH EYES CLOSED AND CALL LIGHT WITHIN REACH WITH NO S/S OF DISTRESS NOTED. WILL CONTINUE TO MONITOR.
[2020-04-05 03:23] VITALS: BP 143/99; PULSE 98; TEMP 98.5
--- NOTE | 2020-04-05 04:49 | NUR ---
Pt has had a quiet and restfull night since her transfer to the medical unit from the ICU. Pt has remained in A&Ox4 and in stable condition with no s/s of distress noted. Pt has been cooperative with care and compliant with using the call light to notify staff of wants/needs. Pt has spent most of the sleep hours in bed with eyes closed and resting peacefully with no c/o pain or discomfort. Pt lantigua remains patent with clear light yellow urine noted. Call light is at Pt side. Will continue to monitor.
[2020-04-05 07:19] LABS: BASO % 0.3 % (0.0-2.0); EOS # 0.2 (0.0-0.7); GRAN # 8.5 (1.4-6.5); GRAN % 75.7 % (42.2-75.2); HEMATOCRIT 37.3 % (37.0-47.0); HEMOGLOBIN 11.5 g/dl (12.5-16.0); LYMPH # 1.9 (1.2-3.4); LYMPH % 16.8 % (20.0-51.0); MEAN CELL VOLUME 98 fl (80.0-100.0); MEAN CORPUSCULAR HEMOGLOBIN 30 pg (27.0-31.0); MEAN CORPUSCULAR HGB CONC 31 g/dl (33.0-37.0); MEAN PLATELET VOLUME 8.9 fl (7.4-10.4); MONO # 0.5 (0.1-0.6); MONO % 4.7 % (1.7-9.3); PLATELET COUNT 294 K/mm3 (130-400); REDCELL DISTRIBUTION WIDTH-CV 14.7 % (11.5-14.5)
[2020-04-05 07:27] LABS: ALBUMIN 3.1 gm/dL (3.5-5.0); BILIRUBIN,TOTAL 0.5 mg/dL (0.0-1.0); CREATININE, serum 0.6 (0.52-1.25); POTASSIUM 3.7 mmol/L (3.4-5.0); TOTAL PROTEIN 6.2 gm/dL (6.4-8.2)
[2020-04-05 07:46] VITALS: BP 138/75; PULSE 98; TEMP 98.7
--- NOTE | 2020-04-05 11:15 | NUR ---
Assessment completed, alert/oriented, vital signs stable, reports pain to head/abdomen/right arm/ right ankle, Tylenol given and repositioned, lungs diminished, heart RRR/ distal pulses are palpable, IV Zosyn infusing at this time through PICC line, patient is very emotional this morning and stated "its just really a hard day for me", I have spent significat amount of time in her room talking with to help ease anxiety, denies other needs at this time
[2020-04-05 12:22] VITALS: BP 130/58; PULSE 92; TEMP 98.1
[2020-04-05 16:02] VITALS: BP 134/73; PULSE 98; TEMP 98.5
[2020-04-05 20:46] VITALS: BP 139/81; PULSE 91; TEMP 98.3
[2020-04-05 23:36] VITALS: BP 104/58; PULSE 88; TEMP 97.9
[2020-04-06 04:30] VITALS: BP 138/78; PULSE 78; TEMP 97.7
--- NOTE | 2020-04-06 05:54 | NUR ---
PT IN BED. NO N/V. NORCO FOR RLE DISCOMFORT. POTASSIUM REPLACEMENT LAST NIGHT AT [facility]. NO DYSPNEA NOTED. LUNGS SOUND DIMINISHED IN BASES.
[2020-04-06 06:11] LABS: BASO # 0.1 (0.0-0.2); BASO % 0.6 % (0.0-2.0); EOS # 0.3 (0.0-0.7); EOS % 2.6 % (0-4.0); GRAN # 7.1 (1.4-6.5); GRAN % 69.5 % (42.2-75.2); HEMOGLOBIN 10.8 g/dl (12.5-16.0); LYMPH # 2.1 (1.2-3.4); LYMPH % 20.7 % (20.0-51.0); MEAN CELL VOLUME 99 fl (80.0-100.0); MEAN CORPUSCULAR HEMOGLOBIN 30 pg (27.0-31.0); MEAN CORPUSCULAR HGB CONC 30 g/dl (33.0-37.0); MONO # 0.6 (0.1-0.6); PLATELET COUNT 263 K/mm3 (130-400); RED BLOOD COUNT 3.62 M/mm3 (4.10-5.30); REDCELL DISTRIBUTION WIDTH-CV 14.6 % (11.5-14.5)
[2020-04-06 06:21] LABS: CREATININE, serum 0.85 (0.52-1.25); POTASSIUM 3.9 mmol/L (3.4-5.0)
[2020-04-06 07:12] VITALS: BP 125/74; PULSE 83; TEMP 97.6
[2020-04-06] MEDS ORDERED: OMNICEF 300MG300 MG PO (09:43)
[2020-04-06] MEDS ORDERED: MELATIN 3 MG-11 TAB PO (09:47)
[2020-04-06] MEDS ORDERED: NORCO 325 MG-51 TAB PO (09:58)
[2020-04-06] MEDS ORDERED: LYRICA 50MG CAP50 MG PO (09:58)
[2020-04-06 12:05] VITALS: BP 127/68; PULSE 85; TEMP 98.2
[2020-04-06] MEDS ORDERED: ZOLOFT 50MG50 MG PO (14:05)
--- NOTE | 2020-04-06 14:40 | NUR ---
Machine Ceramic Coater faxed updates to [facility]. Patient ready to discharge today. SW met with patient and read IM form aloud. Patient verbalized understanding and provided verbal consent as signature. Patient had her daughter Zain on speaker phone and told her that she was discharging today. Zain verbalized understanding and is in agreement with discharge to [facility] today. RACHELE placed IM form on chart and provided copy to patient. RACHELE collaborated with Gustavo at [facility] to set transport time for 1430. RACHELE provided transport time to [facility]. RACHELE attempted to contact patient's daughter Zain to provide transport time but was not able to leave a message. RACHELE faxed discharge orders, prescriptions, and COVID assessment to [facility]. No additional needs at this time.
== END 2020-04-06 16:20 | DRG 871 ==
LOC: COL.ER 11:32 → ICU 12:37 → PEDS 12:37 → MEDICAL 12:37 → ICU 14:16 → MEDICAL 04-04 19:43
PROVIDERS: Emergency Medicine; Physician Assistant; Student in an Organized Health Care Education/Training Program; ADMIT Student in an Organized Health Care Education/Training Program
DX: A41.9 Sepsis, unspecified organism (principal); R65.21 Severe sepsis with septic shock; G92 Toxic encephalopathy; J69.0 Pneumonitis due to inhalation of food and vomit; G93.40 Encephalopathy, unspecified; E87.3 Alkalosis; F33.9 Major depressive disorder, recurrent, unspecified; E78.5 Hyperlipidemia, unspecified; G35 Multiple sclerosis; I10 Essential (primary) hypertension; M79.7 Fibromyalgia; D53.9 Nutritional anemia, unspecified; E11.9 Type 2 diabetes mellitus without complications; K21.9 Gastro-esophageal reflux disease without esophagitis; G47.00 Insomnia, unspecified; F41.9 Anxiety disorder, unspecified; G47.33 Obstructive sleep apnea (adult) (pediatric); E03.9 Hypothyroidism, unspecified; E66.01 Morbid (severe) obesity due to excess calories; K44.9 Diaphragmatic hernia without obstruction or gangrene; Z79.82 Long term (current) use of aspirin; Z79.84 Long term (current) use of oral hypoglycemic drugs; Z88.1 Allergy status to other antibiotic agents; Z88.3 Allergy status to other anti-infective agents; Z90.710 Acquired absence of both cervix and uterus
CPT/HCPCS: 99223-AI; 99232-AI; 99239; C1751; J2310; J2543; J3370; J3480; J7030; J7040; J7050; J7060

== ENCOUNTER → 2020-06-03 | Outpatient (CLI) | payer MEDICARE, MEDICAID ==
[~2020-06-03] MED LIST changes: +LYRICA 50MG CAP50 MG PO; +MELATIN 3 MG-11 TAB PO; +NORCO 325 MG-51 TAB PO; +OMNICEF 300MG300 MG PO; +ZOLOFT 50MG50 MG PO
== END ==
LOC: COL.RAD 08:51
DX: Z98.1 Arthrodesis status (principal)
CPT/HCPCS: A9503

== ENCOUNTER → 2020-07-04 | Outpatient (CLI) | payer MEDICARE, MEDICAID ==
[2020-07-04 16:43] LABS: MUCOUS Present /lpf; PH 5 (5-8); SQUAMOUS EPITHELIAL 0-2 /hpf; URINE APPEARANCE Clear; URINE BACTERIA Rare /hpf; URINE BILIRUBIN Negative (NEGATIVE); URINE BLOOD Negative (NEGATIVE); URINE COLOR Yellow; URINE GLUCOSE Negative (NEGATIVE); URINE KETONE Negative (NEGATIVE); URINE LEUKOCYTE ESTERASE Trace (NEGATIVE); URINE NITRATE Negative (NEGATIVE); URINE PROTEIN(semi-quant) Negative (NEGATIVE); URINE RBC 0-2 /hpf; URINE UROBILINOGEN Negative (NEGATIVE)
[2020-07-04 17:07] LABS: COLLECTION METHOD CLEAN CATCH
== END ==
LOC: ZCOL.LAB 15:45
PROVIDERS: Family Medicine
DX: N30.00 Acute cystitis without hematuria (principal)

== ENCOUNTER → 2020-08-31 | Outpatient (CLI) | payer MEDICARE, MEDICAID ==
[2020-08-31 21:31] LABS: CALCIUM 9.2 mg/dL (8.4-10.2); CREATININE, serum 0.8 (0.52-1.25); POTASSIUM 3.9 mmol/L (3.4-5.0)
== END ==
LOC: ZCOL.LAB 21:12
PROVIDERS: Family Medicine
DX: Z01.89 Encounter for other specified special examinations (principal)

== ENCOUNTER 2020-09-19 20:17 | Emergency (ER) | payer MEDICARE, MEDICAID ==
[~2020-09-19] VITALS: Ht 167.6 cm; Wt 125.0 kg
[2020-09-19 20:20] VITALS: TEMP 97.2
[2020-09-19 21:11] LABS: BASO % 0.3 % (0.0-2.0); EOS # 0.4 (0.0-0.7); EOS % 3.7 % (0-4.0); GRAN # 7.3 (1.4-6.5); GRAN % 69.8 % (42.2-75.2); LYMPH # 2.2 (1.2-3.4); LYMPH % 21.2 % (20.0-51.0); MEAN CELL VOLUME 87 fl (80.0-100.0); MEAN CORPUSCULAR HGB CONC 28 g/dl (33.0-37.0); MONO # 0.5 (0.1-0.6); MONO % 4.5 % (1.7-9.3); PLATELET COUNT 293 K/mm3 (130-400); REDCELL DISTRIBUTION WIDTH-CV 16.1 % (11.5-14.5)
[2020-09-19 21:13] LABS: HEMOGLOBIN 9.1 g/dl (12.5-16.0); MEAN CORPUSCULAR HEMOGLOBIN 25 pg (27.0-31.0)
[2020-09-19 21:23] LABS: C-REACTIVE PROTEIN 2.5 mg/dL (0.0-0.9)
[2020-09-19 21:32] LABS: TROPONIN-I < 0.012 ng/mL (0.000-0.035)
[2020-09-19 21:41] LABS: ALBUMIN 3.8 gm/dL (3.5-5.0); BILIRUBIN,TOTAL 0.5 mg/dL (0.0-1.0); CALCIUM 9.1 mg/dL (8.4-10.2); CREATININE, serum 0.95 (0.52-1.25); POTASSIUM 3.7 mmol/L (3.4-5.0)
[2020-09-20 00:07] VITALS: BP 130/80; PULSE 80
== END 2020-09-20 00:07 | disposition home or self-care (01) ==
LOC: COL.ER 20:17
PROVIDERS: Emergency Medicine
DX: M79.604 Pain in right leg (principal); I10 Essential (primary) hypertension; G35 Multiple sclerosis; E78.00 Pure hypercholesterolemia, unspecified; Z86.718 Personal history of other venous thrombosis and embolism; Z79.01 Long term (current) use of anticoagulants; Z88.1 Allergy status to other antibiotic agents; Z88.8 Allergy status to other drugs, medicaments and biological substances; Z79.82 Long term (current) use of aspirin; Z79.84 Long term (current) use of oral hypoglycemic drugs
CPT/HCPCS: J2060; J2270; Q9967

== ENCOUNTER 2020-10-02 16:07 | Emergency (ER) | payer MEDICARE, MEDICAID ==
[~2020-10-02] VITALS: Ht 167.6 cm; Wt 124.1 kg
[~2020-10-02 16:07] MED LIST changes: -CEPHALEXIN500 M1 PO
[2020-10-02 16:20] VITALS: TEMP 97.3
[2020-10-02 17:33] LABS: BASO % 0.3 % (0.0-2.0); EOS # 0.5 (0.0-0.7); EOS % 3.5 % (0-4.0); GRAN # 10.4 (1.4-6.5); GRAN % 75.4 % (42.2-75.2); LYMPH # 2.1 (1.2-3.4); LYMPH % 14.8 % (20.0-51.0); MEAN CELL VOLUME 88 fl (80.0-100.0); MEAN CORPUSCULAR HGB CONC 28 g/dl (33.0-37.0); MEAN PLATELET VOLUME 10.2 fl (7.4-10.4); MONO # 0.8 (0.1-0.6); MONO % 5.4 % (1.7-9.3); PLATELET COUNT 284 K/mm3 (130-400); RED BLOOD COUNT 3.51 M/mm3 (4.10-5.30); REDCELL DISTRIBUTION WIDTH-CV 16.6 % (11.5-14.5)
[2020-10-02 17:37] LABS: HEMATOCRIT 30.8 % (37.0-47.0); HEMOGLOBIN 8.6 g/dl (12.5-16.0); MEAN CORPUSCULAR HEMOGLOBIN 25 pg (27.0-31.0)
[2020-10-02 17:39] LABS: INR 1.5 (0.8-3.0); PROTHROMBIN TIME 16.7 SECONDS (9.7-12.8)
[2020-10-02 17:44] LABS: ALBUMIN 3.4 gm/dL (3.5-5.0); BILIRUBIN,TOTAL 0.5 mg/dL (0.0-1.0); CREATININE, serum 0.82 (0.52-1.25); POTASSIUM 3.6 mmol/L (3.4-5.0); TOTAL PROTEIN 6.5 gm/dL (6.4-8.2)
[2020-10-02] MEDS ORDERED: ELIQUIS 5MG PO (18:54)
[2020-10-02] MEDS ORDERED: CEPHALEXIN500 M1 PO (19:10)
[2020-10-02 19:45] VITALS: BP 110/68; PULSE 75
== END 2020-10-02 19:45 | disposition home or self-care (01) ==
LOC: COL.ER 16:07
PROVIDERS: Emergency Medicine
DX: I82.4Z1 Acute embolism and thrombosis of unspecified deep veins of right distal lower extremity (principal); G89.29 Other chronic pain; D64.9 Anemia, unspecified; Z88.1 Allergy status to other antibiotic agents; Z88.8 Allergy status to other drugs, medicaments and biological substances; Z79.82 Long term (current) use of aspirin; Z79.84 Long term (current) use of oral hypoglycemic drugs; Z79.01 Long term (current) use of anticoagulants

== ENCOUNTER → 2020-10-02 | Outpatient (CLI) | payer MEDICARE, MEDICAID ==
[~2020-10-02] MED LIST changes: +CEPHALEXIN500 M1 PO
== END ==
LOC: COL.VAS 14:15
DX: I82.451 Acute embolism and thrombosis of right peroneal vein (principal); I82.441 Acute embolism and thrombosis of right tibial vein

== ENCOUNTER → 2020-10-16 | Outpatient (CLI) | payer MEDICARE, MEDICAID ==
[~2020-10-16] MED LIST changes: +CEPHALEXIN500 M1 PO
[2020-10-16 17:50] LABS: CALCIUM 8.9 mg/dL (8.4-10.2); CREATININE, serum 0.75 (0.52-1.25)
[2020-10-16 17:54] LABS: POTASSIUM 4.4 mmol/L (3.4-5.0)
== END ==
LOC: ZLAB.STJ 16:13
PROVIDERS: Family Medicine
DX: E87.6 Hypokalemia (principal)

== ENCOUNTER → 2020-10-16 | Outpatient (CLI) | payer MEDICARE, MEDICAID ==
[2020-10-16 13:50] LABS: ALBUMIN 3.5 gm/dL (3.5-5.0); BILIRUBIN,TOTAL 0.5 mg/dL (0.0-1.0); CALCIUM 9.1 mg/dL (8.4-10.2); CREATININE, serum 0.76 (0.52-1.25); MAGNESIUM 1.8 mg/dL (1.6-2.3); TOTAL PROTEIN 6.4 gm/dL (6.4-8.2)
[2020-10-16 14:16] LABS: POTASSIUM 7.2 mmol/L (3.4-5.0)
[2020-10-16 14:20] LABS: THYROID STIMULATING HORMONE 12.6 uIU/mL (0.465-4.680)
== END ==
LOC: ZLAB.STJ 10:27
PROVIDERS: Internal Medicine
DX: Z01.89 Encounter for other specified special examinations (principal)

== ENCOUNTER → 2020-10-19 | Outpatient (CLI) | payer MEDICARE, MEDICAID ==
[2020-10-19 10:21] LABS: CALCIUM 8.8 mg/dL (8.4-10.2); CREATININE, serum 0.69 (0.52-1.25); POTASSIUM 4.5 mmol/L (3.4-5.0)
== END ==
LOC: ZLAB.STJ 09:41
PROVIDERS: Family Medicine
DX: I10 Essential (primary) hypertension (principal)

== ENCOUNTER → 2020-11-10 | Outpatient (CLI) | payer MEDICARE, MEDICAID ==
[2020-11-10 16:00] LABS: INR 2.3 (0.8-3.0); PROTHROMBIN TIME 25.5 SECONDS (9.7-12.8)
== END ==
LOC: ZLAB.STJ 15:52
PROVIDERS: Family Medicine
DX: I82.513 Chronic embolism and thrombosis of femoral vein, bilateral (principal)

== ENCOUNTER 2020-12-07 20:39 | Emergency (ER) | payer MEDICARE, MEDICAID ==
[~2020-12-07] VITALS: Ht 165.1 cm; Wt 122.7 kg
[2020-12-07 21:04] LABS: BASO # 0.1 (0.0-0.2); BASO % 0.3 % (0.0-2.0); EOS # 0.3 (0.0-0.7); EOS % 1.5 % (0-4.0); GRAN # 15.3 (1.4-6.5); GRAN % 77.1 % (42.2-75.2); LYMPH # 2.8 (1.2-3.4); LYMPH % 14.1 % (20.0-51.0); MEAN CELL VOLUME 81 fl (80.0-100.0); MEAN CORPUSCULAR HGB CONC 28 g/dl (33.0-37.0); MEAN PLATELET VOLUME 9.5 fl (7.4-10.4); MONO # 1.2 (0.1-0.6); MONO % 6.1 % (1.7-9.3); PLATELET COUNT 397 K/mm3 (130-400); RED BLOOD COUNT 4.15 M/mm3 (4.10-5.30); REDCELL DISTRIBUTION WIDTH-CV 17.7 % (11.5-14.5)
[2020-12-07 21:05] LABS: HEMATOCRIT 33.8 % (37.0-47.0); HEMOGLOBIN 9.3 g/dl (12.5-16.0); MEAN CORPUSCULAR HEMOGLOBIN 22 pg (27.0-31.0)
[2020-12-07 21:14] LABS: ALBUMIN 3.9 gm/dL (3.5-5.0); BILIRUBIN,TOTAL 0.5 mg/dL (0.0-1.0); CALCIUM 9.1 mg/dL (8.4-10.2); CREATININE, serum 1.81 (0.52-1.25); POTASSIUM 4.3 mmol/L (3.4-5.0); TOTAL PROTEIN 7.2 gm/dL (6.4-8.2)
[2020-12-07 21:23] LABS: C-REACTIVE PROTEIN 1.2 mg/dL (0.0-0.9)
[2020-12-07 21:27] LABS: TROPONIN-I 0.057 ng/mL (0.000-0.035)
[2020-12-07 21:27] LABS: COLLECTION METHOD CATHETER
[2020-12-07 21:28] LABS: ERYTHROCYTE SEDIMENTATION RATE 33 mm/hr (0-30)
[2020-12-07 21:30] LABS: INR 2.4 (0.8-3.0); PROTHROMBIN TIME 27.6 SECONDS (9.7-12.8)
[2020-12-07 21:33] LABS: PARTIAL THROMBOPLASTIN TIME 36.5 SECONDS (26.0-37.0)
[2020-12-07 21:38] LABS: MUCOUS Present /lpf; PH 5 (5-8); SQUAMOUS EPITHELIAL 0-2 /hpf; URINE APPEARANCE Hazy; URINE BACTERIA None Seen /hpf; URINE BILIRUBIN Positive (NEGATIVE); URINE BLOOD Negative (NEGATIVE); URINE CALCIUM OXALATE CRYSTAL Present /hpf; URINE COLOR Yellow; URINE GLUCOSE Negative (NEGATIVE); URINE KETONE Negative (NEGATIVE); URINE LEUKOCYTE ESTERASE Negative (NEGATIVE); URINE NITRATE Negative (NEGATIVE); URINE PROTEIN(semi-quant) Negative (NEGATIVE); URINE RBC 0-2 /hpf; URINE UROBILINOGEN Negative (NEGATIVE); URINE WBC 0-2 /hpf
[2020-12-08 00:53] LABS: ARTERIAL BLD GAS O2 SATURATION 95.4 % (92-100); ARTERIAL BLD GAS TCO2 CT 21.6; ARTERIAL BLOOD GAS HCO3 20.1 meq/L (22-26); ARTERIAL BLOOD GAS PCO2 48.5 mmHg (35-45); ARTERIAL BLOOD GAS PO2 91.5 mmHg (80-100); ARTERIAL BLOOD GAS pH 7.24 (7.35-7.45)
[2020-12-08 03:20] VITALS: BP 102/83; PULSE 69; TEMP 37.1
== END 2020-12-08 03:20 | disposition short-term general hospital (02) ==
LOC: COL.ER 20:39
PROVIDERS: Emergency Medicine
DX: T68.XXXA Hypothermia, initial encounter (principal); I95.9 Hypotension, unspecified; J96.91 Respiratory failure, unspecified with hypoxia; I25.2 Old myocardial infarction; F41.0 Panic disorder [episodic paroxysmal anxiety]; E11.9 Type 2 diabetes mellitus without complications; M79.7 Fibromyalgia; I10 Essential (primary) hypertension; K21.9 Gastro-esophageal reflux disease without esophagitis; I25.10 Atherosclerotic heart disease of native coronary artery without angina pectoris; E66.9 Obesity, unspecified; Z86.718 Personal history of other venous thrombosis and embolism; Z88.1 Allergy status to other antibiotic agents; Z88.8 Allergy status to other drugs, medicaments and biological substances; Z79.82 Long term (current) use of aspirin; Z79.84 Long term (current) use of oral hypoglycemic drugs; Z79.01 Long term (current) use of anticoagulants
CPT/HCPCS: J0692; J1940; J2405; J3370; J7030; J7050; J7060; J7120

== ENCOUNTER → 2020-12-07 | Outpatient (REF) ==
[~2020-12-07] MED LIST changes: +ANTI-DIARRHEAL2 MG PO; +BIOTIN2500 MCG PO; +COUMADIN4 MG PO; +FOLIC ACID 11 MG/TA1 PO; +LIDODERM 5% PATC1 EA TP; +MELATONIN5 M1 SL; +PEPTO BISM262 MG/15 PO; +SENNA-S 50 MG-81 TAB PO; +SLEEP TABS25 MG PO; +THERAGRAN TAB1 UDTAB PO; +VENTOLIN0.09 MG IH; +VOLTAREN GEL 1%1 TU TP; +ZOLOFT 50MG50 MG; +ZYRTEC 10MG10 MG PO
[2020-12-07 15:49] LABS: CALCIUM 9.2 mg/dL (8.4-10.2); POTASSIUM 4.3 mmol/L (3.4-5.0)
== END ==
LOC: ZLAB.STJ 16:17
PROVIDERS: Family Medicine
DX: Z01.89 Encounter for other specified special examinations (principal)

== ENCOUNTER → 2020-12-16 | Outpatient (CLI) | payer MEDICARE, MEDICAID ==
[2020-12-16 17:54] LABS: ALBUMIN 3.4 gm/dL (3.5-5.0); BILIRUBIN,TOTAL 0.4 mg/dL (0.0-1.0); CALCIUM 9.3 mg/dL (8.4-10.2); CREATININE, serum 0.87 (0.52-1.25); POTASSIUM 4.3 mmol/L (3.4-5.0); TOTAL PROTEIN 6.2 gm/dL (6.4-8.2)
[2020-12-16 17:57] LABS: BASO # 0.1 (0.0-0.2); BASO % 0.5 % (0.0-2.0); EOS # 0.4 (0.0-0.7); EOS % 2.5 % (0-4.0); GRAN # 10.5 (1.4-6.5); GRAN % 70.2 % (42.2-75.2); LYMPH % 20.1 % (20.0-51.0); MEAN CELL VOLUME 81 fl (80.0-100.0); MEAN CORPUSCULAR HGB CONC 28 g/dl (33.0-37.0); MEAN PLATELET VOLUME 10.5 fl (7.4-10.4); MONO # 0.9 (0.1-0.6); MONO % 6.2 % (1.7-9.3); PLATELET COUNT 287 K/mm3 (130-400); REDCELL DISTRIBUTION WIDTH-CV 18.5 % (11.5-14.5)
[2020-12-16 17:58] LABS: HEMATOCRIT 30.8 % (37.0-47.0); HEMOGLOBIN 8.6 g/dl (12.5-16.0); MEAN CORPUSCULAR HEMOGLOBIN 23 pg (27.0-31.0)
== END ==
LOC: ZCOL.LAB 17:42
PROVIDERS: Family Medicine
DX: I25.9 Chronic ischemic heart disease, unspecified (principal)

== ENCOUNTER → 2020-12-17 | Outpatient (CLI) | payer MEDICARE, MEDICAID ==
[2020-12-17 16:30] LABS: COLLECTION METHOD CATHETER
[2020-12-17 16:40] LABS: MUCOUS Present /lpf; PH 5 (5-8); SQUAMOUS EPITHELIAL 0-2 /hpf; URINE APPEARANCE Hazy; URINE BACTERIA Rare /hpf; URINE BILIRUBIN Negative (NEGATIVE); URINE BLOOD Negative (NEGATIVE); URINE CALCIUM OXALATE CRYSTAL Present /hpf; URINE COLOR Yellow; URINE GLUCOSE Negative (NEGATIVE); URINE KETONE Trace (NEGATIVE); URINE LEUKOCYTE ESTERASE Trace (NEGATIVE); URINE NITRATE Negative (NEGATIVE); URINE PROTEIN(semi-quant) Negative (NEGATIVE); URINE UROBILINOGEN Negative (NEGATIVE)
[2020-12-17 16:41] LABS: CALCIUM 9.1 mg/dL (8.4-10.2); CREATININE, serum 0.79 (0.52-1.25); POTASSIUM 4.8 mmol/L (3.4-5.0)
== END ==
LOC: ZLAB.STJ 16:14
PROVIDERS: Family Medicine
DX: N39.0 Urinary tract infection, site not specified (principal)

== ENCOUNTER → 2020-12-18 | Outpatient (CLI) | payer MEDICARE, MEDICAID | LOC: COL.CARD 07:05 | DX: Z01.89 Encounter for other specified special examinations (principal) ==

== ENCOUNTER 2020-12-21 10:01 | Emergency (ER) | payer MEDICARE, MEDICAID ==
[~2020-12-21] VITALS: Ht 167.6 cm; Wt 115.0 kg
[2020-12-21 10:07] VITALS: TEMP 99.4
[2020-12-21 11:35] LABS: ALANINE AMINOTRANSFERASE 142 U/L (4-34); ALBUMIN 3.5 gm/dL (3.5-5.0); ALKALINE PHOSPHATASE 263 U/L (50-136); ANION GAP 6 mmol/L (7-16); AST,SGOT 305 U/L (15-37); BASO % 0.4 % (0.0-2.0); BILIRUBIN,TOTAL 0.5 mg/dL (0.0-1.0); BLOOD UREA NITROGEN 19 mg/dL (7-17); CARBON DIOXIDE 26 mmol/L (22-30); CHLORIDE 105 mmol/L (98-107); CREATININE, serum 0.77 (0.52-1.25); EOS # 0.1 (0.0-0.7); EOS % 1.2 % (0-4.0); GLUCOSE 97 mg/dL (74-106); GRAN # 6.2 (1.4-6.5); GRAN % 81.2 % (42.2-75.2); LYMPH # 0.8 (1.2-3.4); LYMPH % 10.3 % (20.0-51.0); MEAN CELL VOLUME 81 fl (80.0-100.0); MEAN CORPUSCULAR HGB CONC 28 g/dl (33.0-37.0); MEAN PLATELET VOLUME 10.5 fl (7.4-10.4); MONO # 0.5 (0.1-0.6); PLATELET COUNT 201 K/mm3 (130-400); POTASSIUM 3.9 mmol/L (3.4-5.0); RED BLOOD COUNT 3.89 M/mm3 (4.10-5.30); REDCELL DISTRIBUTION WIDTH-CV 18.6 % (11.5-14.5); SODIUM 138 mmol/L (137-145); TOTAL PROTEIN 6.6 gm/dL (6.4-8.2)
[2020-12-21 11:36] LABS: HEMATOCRIT 31.5 % (37.0-47.0); HEMOGLOBIN 8.9 g/dl (12.5-16.0); MEAN CORPUSCULAR HEMOGLOBIN 23 pg (27.0-31.0)
[2020-12-21 11:38] LABS: INR 1.9 (0.8-3.0); PROTHROMBIN TIME 21.9 SECONDS (9.7-12.8)
[2020-12-21 11:46] LABS: TROPONIN-I < 0.012 ng/mL (0.000-0.035)
[2020-12-21 18:25] VITALS: BP 131/80; PULSE 100
== END 2020-12-21 18:29 | disposition home or self-care (01) ==
LOC: COL.ER 10:01
PROVIDERS: Emergency Medicine
DX: U07.1 COVID-19 (principal); I25.2 Old myocardial infarction; Z88.1 Allergy status to other antibiotic agents; Z88.2 Allergy status to sulfonamides; Z88.8 Allergy status to other drugs, medicaments and biological substances; Z87.891 Personal history of nicotine dependence; Z79.82 Long term (current) use of aspirin
CPT/HCPCS: J1170; J2060; J2405; J7030; Q9967